=== PATIENT | male | born 1990 | race Caucasian/White ===

== ENCOUNTER 2020-01-07 19:04 | Emergency (ER) | payer SELFPAY ==
[~2020-01-07] VITALS: Ht 188 cm; Wt 72.7 kg
[~2020-01-07 19:04] MED LIST: RISP2TAB23 PO
[2020-01-07 19:08] VITALS: BP 124/69
== END 2020-01-07 21:06 | disposition home or self-care (01) ==
LOC: EMS 19:04
DX: F22 Delusional disorders (principal); F15.10 Other stimulant abuse, uncomplicated; F32.9 Major depressive disorder, single episode, unspecified; F41.9 Anxiety disorder, unspecified; F17.210 Nicotine dependence, cigarettes, uncomplicated
CPT/HCPCS: 99406; Z7502

== ENCOUNTER 2022-06-03 20:54 | Inpatient (IN) | payer MEDICAID ==
[~2022-06-03] VITALS: Ht 188 cm; Wt 79.6 kg
[2022-06-03 21:32] LABS: COVID AG,FIA SOURCE NASOPHARYNGEAL
[2022-06-03] MEDS ORDERED: HALOPERIDOL 5 MG TABLET PO PRN (22:30)
[2022-06-03] MEDS ORDERED: ZOLPIDEM TARTRATE 10 MG TABLET PO PRN (22:30)
[2022-06-03] MEDS ORDERED: OLANZapine 5 MG RAPDIS TABLET PO ONE (22:45)
[2022-06-03 22:48] LABS: BASOPHILS % (AUTO) 0.5 % (0.0-2.0); EOSINOPHILS % (AUTO) 0.2 % (1.0-6.0); HEMATOCRIT 41.3 % (41-53); HEMOGLOBIN 14.3 g/dL (13.5-17.5); LYMPHOCYTES # (AUTO) 1.4 K/uL (1.0-4.8); MEAN CORPUSCULAR HGB CONC 34.6 G/dL (31.0-37.0); MEAN CORPUSCULAR VOLUME 84 fL (80-100); MONOCYTES # (AUTO) 0.7 K/uL (0.1-1.0); MONOCYTES % (AUTO) 5.8 % (2.0-9.0); NEUTROPHILS # (AUTO) 9.8 K/uL (1.8-7.7); NEUTROPHILS % (AUTO) 81.5 % (40.0-70.0); PLATELET COUNT (AUTO) 254 K/uL (150-450); RED BLOOD CELL COUNT(AUTO) 4.92 MIL/uL (4.50-5.90); RED CELL DISTRIBUTION WIDTH 13.3 % (11.5-14.5)
[2022-06-03 22:56] LABS: ANION GAP 9 mmol/L (8-16); CALCIUM, TOTAL 9.3 mg/dL (8.8-10.5); CARBON DIOXIDE 29 mmol/L (22-29); CHLORIDE 99 mmol/L (98-107); CREATININE 1.18 mg/dL (0.60-1.30); GLUCOSE,RANDOM 111 mg/dL (70-110); POTASSIUM 4.1 mmol/L (3.5-5.1); SODIUM SERUM 137 mmol/L (136-145); UREA NITROGEN, BLOOD 14 mg/dL (7-18)
[2022-06-03 22:57] LABS: GLOMERULAR FILTR. RATE CALC > 60 mL/min (>60)
[2022-06-03 23:03] LABS: ALANINE AMINOTRANSFERASE 37 U/L (12-78); ALBUMIN 4.5 g/dL (3.4-5.0); ALKALINE PHOSPHATASE 58 U/L (46-116); ASPARTATE AMINOTRANSFERASE 25 U/L (15-37); BILIRUBIN,TOTAL 0.5 mg/dL (0.1-1.0); TOTAL PROTEIN, SERUM 7.8 g/dL (6.4-8.2)
[2022-06-03 23:29] LABS: AMPHET/METH SCREEN,URINE POSITIVE (NEGATIVE); BARBITURATE SCREEN, URINE NEGATIVE (NEGATIVE); BENZODIAZEPINES SCREEN,URINE NEGATIVE (NEGATIVE); CANNABINOID SCREEN,URINE NEGATIVE (NEGATIVE); COCAINE SCREEN,URINE NEGATIVE (NEGATIVE); METHADONE SCREEN, URINE NEGATIVE (NEGATIVE); OPIATE SCREEN,URINE NEGATIVE (NEGATIVE)
[2022-06-03 23:30] LABS: PHENCYCLIDINE SCREEN,URINE NEGATIVE (NEGATIVE)
[2022-06-04] MEDS: LORazepam 2 MG TABLET PO PRN (00:45)
[2022-06-04] MEDS ORDERED: INFLUENZA VIRUS VACCINE QVS 2022-23 (6MO+)/PF 60 MCG/0.5 ML SYRINGE IM. ONE (02:00)
[2022-06-04 08:28] VITALS: BP 112/65
[2022-06-04] MEDS: FLUoxetine HCL 10 MG CAPSULE PO SCH (11:45)
[2022-06-04] MEDS: OLANZapine 10 MG TABLET PO SCH (11:45)
[2022-06-04 16:03] VITALS: BP 116/68
[2022-06-05 08:18] VITALS: BP 130/69
[2022-06-05] MEDS: FLUoxetine HCL 10 MG CAPSULE PO SCH (09:01)
[2022-06-05] MEDS: OLANZapine 10 MG TABLET PO SCH (09:01)
[2022-06-05 16:06] VITALS: BP 100/51
[2022-06-06 08:28] VITALS: BP 128/85
[2022-06-06] MEDS: LORazepam 2 MG TABLET PO PRN (08:31)
[2022-06-06] MEDS: OLANZapine 10 MG TABLET PO SCH (08:31)
[2022-06-06] MEDS: FLUoxetine HCL 10 MG CAPSULE PO SCH (08:31)
== END 2022-06-06 16:33 | disposition home or self-care (01) | DRG 750 ==
LOC: EMS 20:57 → UNDOADMIN 06-04 00:12 → 3EC 06-04 00:12 → 3EI 06-04 00:12
PROVIDERS: ADMIT Psychiatry & Neurology Child & Adolescent Psychiatry; ATTEND Psychiatry & Neurology Child & Adolescent Psychiatry
DX: F25.0 Schizoaffective disorder, bipolar type (principal); D72.829 Elevated white blood cell count, unspecified; F15.10 Other stimulant abuse, uncomplicated; R73.9 Hyperglycemia, unspecified; F41.9 Anxiety disorder, unspecified; Z87.820 Personal history of traumatic brain injury; Z87.891 Personal history of nicotine dependence
CPT/HCPCS: 80053; 85025; 99285; G0480